=== PATIENT | male | born 1965 | race Two or more races ===

== ENCOUNTER 2017-11-30 09:29 | Emergency (ER) | payer MEDICAID ==
[~2017-11-30] VITALS: Ht 172.7 cm; Wt 81.6 kg
[~2017-11-30 09:29] MED LIST: ALBUTEROL SULF8.5 GM INH
[2017-11-30] MEDS ORDERED: SIMVASTATIN20 MG ORAL (09:42)
[2017-11-30] MEDS ORDERED: ENALAPRIL MALEA20 MG ORAL (09:42)
[2017-11-30] MEDS ORDERED: METFORMIN HCL5000 GM MC (09:42)
[2017-11-30] MEDS ORDERED: GLYBURIDE5 MG PO (09:42)
[2017-11-30] MEDS ORDERED: NORVASC2.5 MG ORAL (09:42)
[2017-11-30] MEDS ORDERED: METFORMIN HCL1000 M2 ORAL (09:42)
[2017-11-30 09:52] VITALS: BP 130/76
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
[2017-11-30 10:25] LABS: BASOPHILS % (AUTO) 0.8 % (0.0-2.0); EOSINOPHILS % (AUTO) 2.1 % (0.0-3.0); HEMOGLOBIN 16.4 G/DL (14.2-18.0); LYMPHOCYTES % (AUTO) 26.5 % (20.0-45.0); MEAN CORPUSCULAR VOLUME 84 FL (80-99); MONOCYTES % (AUTO) 5.2 % (1.0-10.0); NEUTROPHILS % (AUTO) 65.4 % (45.0-75.0); PLATELET COUNT 170 K/UL (150-450); RED BLOOD COUNT 5.59 M/UL (4.70-6.10); RED CELL DISTRIBUTION WIDTH 10.6 % (11.6-14.8); WHITE BLOOD COUNT 7.6 K/UL (4.8-10.8)
[2017-11-30 10:37] LABS: ANION GAP 9 mmol/L (5-15); BLOOD UREA NITROGEN 13 mg/dL (7-18); CALCIUM 8.9 MG/DL (8.5-10.1); CARBON DIOXIDE 26 MMOL/L (21-32); CHLORIDE 97 MMOL/L (98-107); CREATININE 0.8 MG/DL (0.55-1.30); POTASSIUM 4.1 MMOL/L (3.5-5.1); SODIUM 132 MMOL/L (136-145)
[2017-11-30 10:42] LABS: ALANINE AMINOTRANSFERASE 44 U/L (12-78); ALBUMIN 3.9 G/DL (3.4-5.0); ALBUMIN/GLOBULIN RATIO 1.2 (1.0-2.7); ALKALINE PHOSPHATASE 105 U/L (46-116); ASPARTATE AMINO TRANSFERASE 21 U/L (15-37); BILIRUBIN,TOTAL 0.6 MG/DL (0.2-1.0)
[2017-11-30 11:09] LABS: APPEARANCE,URINE CLEAR; BILIRUBIN, URINE NEGATIVE (NEGATIVE); COLOR,URINE PALE YELLOW; GLUCOSE, URINE (UA) 4+ (NEGATIVE); KETONES,URINE 2+ (NEGATIVE); LEUKOCYTE ESTERASE ,URINE NEGATIVE (NEGATIVE); NITRITE,URINE NEGATIVE (NEGATIVE); PH,URINE 6 (4.5-8.0); PROTEIN,URINE NEGATIVE (NEGATIVE); UROBILINOGEN,URINE NORMAL MG/DL (0.0-1.0)
--- NOTE | 2017-11-30 11:58 | Diagnostic Imaging Report ---
Indication: Chest pain Comparison: February 21, 2012 A single view chest radiograph was obtained. Findings: Cardiomediastinal appearance is within normal limits for age. The lungs are clear. Pulmonary vascularity is appropriate. The diaphragmatic contour is smooth and costophrenic angles are sharp. No pleural effusions are identified. The bones are unremarkable. Impression: No acute findings
[2017-11-30 12:10] VITALS: BP 121/81
[2017-11-30] MEDS ORDERED: Insulin Human Regular 100units/ml 3ml IV ONE (13:00)
[2017-11-30 13:06] VITALS: BP 121/81
--- NOTE | 2017-12-02 12:06 | Cardiology Report ---
APPROVED REPORT EKG Measurement Heart [id number] Normal sinus rhythm Nonspecific T wave abnormality Abnormal ECG
== END 2017-11-30 13:06 | disposition home or self-care (01) ==
LOC: EMR 09:59
DX: E11.65 Type 2 diabetes mellitus with hyperglycemia (principal); M54.9 Dorsalgia, unspecified; I10 Essential (primary) hypertension; Z79.899 Other long term (current) drug therapy
CPT/HCPCS: 36415; 71045; 80053; 81003; 84484; 85025; 93005; J1815